=== PATIENT | female | born 1990 | race Hispanic/Latino ===

== ENCOUNTER 2016-10-28 12:36 | Outpatient (CLI) | payer MEDICAID ==
[2016-10-28 18:08] VITALS: BP 117/68
== END 2016-10-28 19:27 | disposition home or self-care (01) ==
LOC: LAB 12:36 → TRG 17:30 → LAB 19:27
PROVIDERS: ATTEND Obstetrics & Gynecology
DX: O36.0190 Maternal care for anti-D [Rh] antibodies, unspecified trimester, not applicable or unspecified (principal); O47.9 False labor, unspecified; Z3A.00 Weeks of gestation of pregnancy not specified
CPT/HCPCS: 86850; 86900; 86901; J2790; 96372

== ENCOUNTER 2016-10-30 07:14 | Outpatient (CLI) | payer MEDICAID ==
[2016-10-30 09:12] VITALS: BP 107/67
[2016-10-30] MEDS ORDERED: VISTARIL PO PRN (09:27)
== END 2016-10-30 09:42 | disposition home or self-care (01) ==
LOC: TRG 07:14
PROVIDERS: ATTEND Obstetrics & Gynecology
DX: O77.9 Labor and delivery complicated by fetal stress, unspecified (principal); O47.9 False labor, unspecified; Z3A.00 Weeks of gestation of pregnancy not specified
CPT/HCPCS: 59025; Q0177

== ENCOUNTER 2016-10-30 18:16 | Outpatient (CLI) | payer MEDICAID ==
[2016-10-30] MEDS ORDERED: MORPHINE IM PRN ×2 (18:51→19:16)
[2016-10-30] MEDS ORDERED: MORPHINE IV ONE ×2 (19:00→20:00)
[2016-10-30] MEDS ORDERED: MORPHINE ONE (19:18)
[2016-10-30 19:47] LABS: Basophils % (Auto) 0.2 % (0.0-1.8); Hematocrit 32.1 % (30.3-42.9); Hemoglobin 10.5 gm/dl (10.1-14.3); Mean Corpuscular HGB Conc 33 % (30-34); Mean Corpuscular Hemoglobin 27 pg (28-32); Mean Corpuscular Volume 82 fl (79-97); Platelet Count 170 K/mm3 (140-440); Red Blood Count 3.91 M/mm3 (3.65-5.03); Red Cell Distribution Width 14.5 % (13.2-15.2); White Blood Count 10.8 K/mm3 (4.5-11.0)
[2016-10-30] MEDS ORDERED: LACTATED RINGERS 1,000 ML IV SCH (20:00)
[2016-10-30] MEDS ORDERED: VISTARIL PO ONE (21:08)
== END 2016-10-30 21:42 | disposition home or self-care (01) ==
LOC: TRG 18:16
PROVIDERS: ATTEND Obstetrics & Gynecology
DX: O47.9 False labor, unspecified (principal); Z3A.00 Weeks of gestation of pregnancy not specified
CPT/HCPCS: 36415; 85025; 86850; 86870; 86900; 86901; 96372; 96374; J2270; J7120; Q0177

== ENCOUNTER 2018-04-09 14:29 | Inpatient (IN) | payer MEDICAID, OTHER ==
[2018-04-09] MEDS ORDERED: BRETHINE SUB-Q PRN (15:15)
[2018-04-09] MEDS ORDERED: PHENERGAN PO PRN (15:15)
[2018-04-09] MEDS ORDERED: ePHEDrine SULFATE IV PRN ×2 (15:15→20:53)
[2018-04-09] MEDS ORDERED: BRETHINE IVP PRN (15:15)
[2018-04-09] MEDS ORDERED: POLYCILLIN/NS 2 GM/100 ML 2 GM/100 ML BAG IV ONE (16:00)
[2018-04-09] MEDS ORDERED: XYLOCAINE 2% INFILTRATI ONE (16:00)
[2018-04-09] MEDS ORDERED: PITOCin/NS 30 UNIT/500ML 30,000 MILLIUNITS/500 ML BAG IV ONE (17:04)
[2018-04-09 17:06] LABS: Hematocrit 35.3 % (30.3-42.9); Hemoglobin 11.7 gm/dl (10.1-14.3); Mean Corpuscular HGB Conc 33 % (30-34); Mean Corpuscular Hemoglobin 28 pg (28-32); Mean Corpuscular Volume 84 fl (79-97); Platelet Count 155 K/mm3 (140-440); Red Blood Count 4.23 M/mm3 (3.65-5.03); Red Cell Distribution Width 13.9 % (13.2-15.2)
[2018-04-09 17:13] LABS: Amphetamine Screen,Urine PRESUMPTIVE NEGATIVE; Benzodiazepines Screen,Urine PRESUMPTIVE NEGATIVE; Cannabinoid Screen,Urine PRESUMPTIVE NEGATIVE; Cocaine Screen,Urine PRESUMPTIVE NEGATIVE; Methadone Screen,Urine PRESUMPTIVE NEGATIVE; Opiate Screen,Urine PRESUMPTIVE NEGATIVE
[2018-04-09] MEDS: LACTATED RINGERS 1,000 ML IV SCH ×3 (17:14→20:36)
[2018-04-09 17:31] LABS: Hepatitis C Virus Antibody Non-Reactive (NonReactive); Rubella IgG Antibody Immune (Immune)
[2018-04-09] MEDS: STADOL IV PRN ×2 (18:24→20:13)
--- NOTE | 2018-04-09 20:38 | History and Physical Report ---
History of Present Illness Date of examination: 04/10/18 Date of admission: 04/09/18 16:31 History of present illness: Presents to L&D with [facility] with leaking all day per patient. Patient with very limited care she states due to unable to obtain Medicaid. Initial exam in triage patient found to be 2 cm patient be admitted EDC is obtained from patient was then seen previously at various hospitals visits Past History Past Medical History: no pertinent history Past Surgical History: no surgical history - Obstetrical History Expected Date of Delivery: 04/22/18 Actual Gestation: 38 Week(s) 2 Day(s) : 3 Para: 2 Hx # Term Pregnancies: 2 Number of Pregnancies: 0 Spontaneous Abortions: 0 Induced : 0 Number of Living Children: 2 Medications and Allergies Allergies Allergy/AdvReac Type Severity Reaction Status Date / Time No Known Allergies Allergy Verified 07/12/16 23:12 Home Medications Medication Instructions Recorded Confirmed Last Taken Type Vitamin Tablet 1 tab PO QDAY 04/09/18 04/09/18 04/09/18 08:00 History 1 Active Meds: Active Medications Butorphanol Tartrate (Stadol) 2 mg IV Q2H PRN PRN Reason: Pain , Severe (7-10) Last Admin: 04/09/18 20:13 Dose: 2 mg Ephedrine Sulfate (Ephedrine Sulfate) 10 mg IV Q2M PRN PRN Reason: Hypotension Lactated Ringer's (Lactated Ringers) 1,000 mls @ 125 mls/hr IV DIRECT SAMI Last Admin: 04/09/18 20:36 Dose: 125 mls/hr Oxytocin/Sodium Chloride (Pitocin/Ns 20 Unit/1000ml Drip) 20 units in 1,000 mls @ 125 mls/hr IV DIRECT SAMI Oxytocin/Sodium Chloride (Pitocin/Ns 30 Unit/500ml) 30,000 milliunits in 500 mls @ 4 mls/hr IV DIRECT ONE; Protocol Stop: 04/14/18 22:03 Last Titration: 04/09/18 19:25 Dose: 16 milliunits/min, 16 mls/hr Promethazine HCl (Phenergan) 25 mg PO Q6H PRN PRN Reason: Nausea And Vomiting Terbutaline Sulfate (Brethine) 0.25 mg SUB-Q ONCE PRN PRN Reason: Hyperstimulation/Hypertonicity Terbutaline Sulfate (Brethine) 0.25 mg IVP ONCE PRN PRN Reason: Hyperstimulation/Hypertonicity - Vital Signs Vital signs: Vital Signs Pulse BP 89 116/70 04/09/18 15:49 04/09/18 15:49 Temp Pulse Resp BP Pulse Ox 97.2 F L 76 16 119/56 98 04/09/18 19:10 04/09/18 20:38 04/09/18 20:13 04/09/18 20:35 04/09/18 20:38 - Physical Exam Breasts: Positive: deferred Cardiovascular: Regular rate Lungs: Positive: Normal air movement Abdomen: Positive: normal appearance Genitourinary (Female): Positive: normal external genitalia Cervix: Positive: other (per RN) Results Result Diagrams: 04/09/18 16:30 All other labs normal. Assessment and Plan - Patient Problems (1) Insufficient care in third trimester Current Visit: Yes Status: Acute (2) Active labor at term Current Visit: Yes Status: Acute (3) Premature rupture of membranes Current Visit: Yes Status: Acute Qualifiers: PROM onset of labor timing: onset of labor within 24 hours of rupture PROM gestational age: full term Qualified Code(s): O42.02 - Full-term premature rupture of membranes, onset of labor within 24 hours of rupture Plan to address problem: We'll admit and obtain labs given from prophylactic antibiotics and augment if necessary
[2018-04-09] MEDS ORDERED: NARCAN 2 MG/2 ML IV PRN (20:53)
--- NOTE | 2018-04-09 20:54 | Anesthesia Consultation ---
Anesthesia Consult and Med Hx Date of service: 04/09/18 - Airway Anesthetic Teeth Evaluation: Good ROM Head & Neck: Adequate Mental/Hyoid Distance: Adequate Mallampati Class: Class II Intubation Access Assessment: Good - Pulmonary Exam CTA: Yes - Cardiac Exam Cardiac Exam: No Murmur - Pre-Operative Health Status ASA Pre-Surgery Classification: ASA2 Proposed Anesthetic Plan: Epidural - Pulmonary Hx Asthma: No COPD: No Hx Pneumonia: No - Cardiovascular System Hx Hypertension: No - Central Nervous System Hx Seizures: No Hx Psychiatric Problems: No - Endocrine Hx Renal Disease: No Hx End Stage Renal Disease: No Hx Hypothyroidism: No Hx Hyperthyroidism: No - Hematic Hx Anemia: No Hx Sickle Cell Disease: No - Other Systems Hx Alcohol Use: No
[2018-04-09] MEDS ORDERED: fentaNYL-BUPIV 2 MCG/ML-0.125% 200 MCG/100 ML BAG EPIDURAL SCH (21:00)
[2018-04-09] MEDS ORDERED: AMPICILLIN/NS 1 GM/50 ML 1 GM/50 ML BAG IV SCH (22:00)
--- NOTE | 2018-04-10 00:34 | Event Note ---
Date: 04/10/18 Patient comfortable with epidural with contractions every 2-3 minutes. Reported approximately 2330 RN been 4 cm. Patient now is 7 minutes 7 cm 90% effaced and 0 station for bag ruptured with amnio-hook and fetus Electrode and IUPC placed. We'll continue Pitocin hopeful vaginal delivery some
[2018-04-10] MEDS: PITOCin/NS 20 UNIT/1000ML DRIP 20 UNITS/1,000 ML BAG IV SCH ×2 (02:15→03:05)
--- NOTE | 2018-04-10 02:23 | Procedure Note ---
OB Delivery Note - Delivery Date of Delivery: 04/10/18 Surgeon: NACHO CHAN Estimated blood loss: 300cc - Vaginal Delivery position: OA Intrapartum events: no care, PROM->1hr before delivery Delivery induction: none Delivery monitor: external FHT, external uterine, internal FHT, internal uterine Route of delivery: Delivery placenta: spontaneous Delivery cord: nuchal cord, 3 umbilical vessels Episiotomy: none Delivery laceration: none Anesthesia: epidural - Infant A at 1 minute: 9 at 5 minutes: 9 Gender: Male
[2018-04-10] MEDS ORDERED: PHENERGAN PO PRN (04:23)
[2018-04-10] MEDS ORDERED: MILK OF MAGNESIA PO PRN (04:23)
[2018-04-10] MEDS ORDERED: LANSINOH TP PRN (04:23)
[2018-04-10] MEDS ORDERED: TUCKS PAD TP PRN (04:23)
[2018-04-10] MEDS ORDERED: DULCOLAX PR PRN (04:23)
[2018-04-10] MEDS ORDERED: BENADRYL PO PRN (04:23)
[2018-04-10] MEDS ORDERED: SODIUM CHLORIDE FLUSH SYRINGE 10 ML IV PRN (04:23)
[2018-04-10] MEDS ORDERED: TYLENOL PO PRN (04:23)
[2018-04-10] MEDS: NORCO 5/325 PO PRN ×4 (04:56→22:36)
[2018-04-10] MEDS: MOTRIN PO SCH ×3 (11:00→23:09)
[2018-04-10] MEDS: PRENATAL VITAMIN PO SCH (11:15)
[2018-04-10 13:04] LABS: Hematocrit 30.9 % (30.3-42.9); Hemoglobin 10.7 gm/dl (10.1-14.3)
[2018-04-10] MEDS: COLACE PO SCH (22:36)
[2018-04-11] MEDS: MOTRIN PO SCH ×4 (05:16→22:58)
[2018-04-11] MEDS: NORCO 5/325 PO PRN ×4 (05:18→22:57)
--- NOTE | 2018-04-11 06:12 | Discharge Summary ---
Providers - Providers Date of Admission: 04/09/18 16:31 Date of discharge: 04/11/18 (pt agrees to d/c tomorrow; GBS unknown) Attending physician: NACHO CHAN 04/10/18 04:23 Consult to Deputy Assessor [CONS] Routine Reason For Exam: assistance with , SNS Primary care physician: JUDY ECHEVERRIA Hospitalization Reason for admission: active labor Delivery: Episiotomy: none Laceration: none Incision: normal Other procedures: none complications: none Discharge diagnosis: IUP at term delivered [place] baby: male Hospital course: Insufficient Care Uncomplicated vaginal delivery Pt w/o complaint VSS FF below umb Lochia small Perineum intact H&H 08/01 No anemia Doing well s/p vag delivery. P: d/c tomorrow with instructions Pt will f/ u with [facility] for her PP care and her son's circ. Undecided @ . RX Motrin and EMLA @ d/c Condition at discharge: Good Disposition: DC- TO HOME OR SELFCARE - Discharge Diagnoses (1) Spontaneous vaginal delivery Status: Acute Comment: RTO 4 weeks for PP care. Plan - Discharge Medications Prescriptions: Ibuprofen [Motrin 800 MG tab] 800 mg PO TID PRN #30 tablet PRN Reason: Pain Lidocain2.5%/Prilocai2.5% [Emla] 5 gm TP PRN #1 tube - Provider Discharge Summary Activity: routine, no sex for 6 weeks, no heavy lifting 4 weeks, no strenuous exercise Diet: routine Instructions: routine Additional instructions: [] Smoking cessation referral if applicable(refer to patient education folder for contact #) [] Refer to [facility] Booklet Call your doctor immediately for: * Fever > 100.5 * Heavy vaginal bleeding ( >1 pad per hour) * Severe persistent headache * Shortness of breath * Reddened, hot, painful area to leg or breast * Drainage or odor from incision. * Keep incision clean and dry at all times and follow doctor's instructions regarding bathing/showering - Follow up plan Follow up: JUDY ECHEVERRIA MD [Primary Care Provider] - 7 Days DL FINE CNM [Advanced Practice Nurse] - 7 Days (Congratulations! Please call [phone] to schedule your visit in 4 weeks and your son's circumcision in 1 week. Bring the EMLA cream with you to his visit. Do NOT use at home. Take medication as prescribed. Call with concerns. SAAD; [address]; [facility] [id number])
[2018-04-11] MEDS: PRENATAL VITAMIN PO SCH (11:15)
[2018-04-11] MEDS: COLACE PO SCH (22:14)
[2018-04-12] MEDS: NORCO 5/325 PO PRN ×2 (04:55→12:15)
[2018-04-12] MEDS: MOTRIN PO SCH ×2 (04:56→12:00)
[2018-04-12] MEDS: COLACE PO SCH (10:43)
[2018-04-12] MEDS: PRENATAL VITAMIN PO SCH (10:43)
[2018-04-12 16:49] VITALS: BP 119/64
== END 2018-04-12 16:20 | disposition home or self-care (01) | DRG 775 ==
LOC: TRG 14:29 → LD 16:31 → OB 04-10 04:04
PROVIDERS: ADMIT Obstetrics & Gynecology; ATTEND Obstetrics & Gynecology
PROC: 10E0XZZ Delivery of Products of Conception, External Approach (ICD-10-PCS; principal; 2018-04-10)
PROC: 3E0R3BZ Introduction of Anesthetic Agent into Spinal Canal, Percutaneous Approach (ICD-10-PCS; 2018-04-10)
PROC: 00HU33Z Insertion of Infusion Device into Spinal Canal, Percutaneous Approach (ICD-10-PCS; 2018-04-10)
PROC: 3E0334Z Introduction of Serum, Toxoid and Vaccine into Peripheral Vein, Percutaneous Approach (ICD-10-PCS; 2018-04-10)
DX: O42.02 Full-term premature rupture of membranes, onset of labor within 24 hours of rupture (principal); O69.81X0 Labor and delivery complicated by cord around neck, without compression, not applicable or unspecified; Z3A.38 38 weeks gestation of pregnancy; Z37.0 Single live birth
CPT/HCPCS: 36415; 80307; 85014; 85018; 85027; 85461; 85660; 86592; 86706; 86762; 86803; 86850; 86900; 86901; 87806; 99211; A6250; G0463; J0290; J0595; J2590; J2790; J7120